=== PATIENT | female | born 1975 | race Hispanic/Latino ===

== ENCOUNTER 2022-05-03 07:41 | Outpatient (CLI) | payer MEDICAID | END 2022-05-03 07:42 | disposition home or self-care (01) | LOC: CSHCT 07:41 | PROVIDERS: ATTEND Physician Assistant | DX: R91.8 Other nonspecific abnormal finding of lung field (principal) | CPT/HCPCS: 71270 ==

== ENCOUNTER 2023-04-15 06:24 | Emergency (ER) | payer OTHER ==
[2023-04-15] MEDS ORDERED: methylPREDNISolone Sod Succ/PF 125 MG/2 ML VIAL ONE (07:22)
== END 2023-04-15 07:29 | disposition home or self-care (01) ==
LOC: CSHERS 06:24
DX: L25.9 Unspecified contact dermatitis, unspecified cause (principal); E78.5 Hyperlipidemia, unspecified; I10 Essential (primary) hypertension; E03.9 Hypothyroidism, unspecified; K21.9 Gastro-esophageal reflux disease without esophagitis; Z87.891 Personal history of nicotine dependence
CPT/HCPCS: 96372; 99282; J2930

== ENCOUNTER 2023-08-17 07:08 | Emergency (ER) | payer OTHER ==
[2023-08-17] MEDS ORDERED: Orphenadrine Citrate 60 MG/2 ML VIAL ONE (08:09)
[2023-08-17] MEDS ORDERED: Ketorolac Tromethamine 30 MG/ML VIAL ONE (08:09)
== END 2023-08-17 09:13 | disposition home or self-care (01) ==
LOC: CSHERS 07:08
DX: M54.50 Low back pain, unspecified (principal); I10 Essential (primary) hypertension; E11.9 Type 2 diabetes mellitus without complications; Z87.891 Personal history of nicotine dependence
CPT/HCPCS: 96372; 99283; J1885; J2360

== ENCOUNTER 2024-12-03 17:08 | Emergency (ER) | payer OTHER ==
[2024-12-03] MEDS ORDERED: HYDROcodone/Acetaminophen 5/325 mg Tablet ONE (17:50)
== END 2024-12-03 18:00 | disposition home or self-care (01) ==
LOC: CSHERS 17:08
DX: M79.671 Pain in right foot (principal); E78.5 Hyperlipidemia, unspecified; E11.40 Type 2 diabetes mellitus with diabetic neuropathy, unspecified; Z87.891 Personal history of nicotine dependence
CPT/HCPCS: 99283